=== PATIENT | female | born 1980 | race African-American/Black ===

== ENCOUNTER 2017-04-30 12:17 | Emergency (ER) | payer MEDICAID ==
[~2017-04-30] VITALS: Ht 170.2 cm; Wt 100.0 kg
[2017-04-30] MEDS ORDERED: PLEASE ENTER ALLERGIES MC SCH ×2 (13:00)
[2017-04-30] MEDS ORDERED: PLEASE ENTER HEIGHT AND WEIGHT MC SCH (13:00)
[2017-04-30] MEDS ORDERED: ALBUTEROL/IPRATROPIUM 2.5MG/0.5MG, 3 ML NPPB ONE (13:00)
[2017-04-30] MEDS ORDERED: ALBUTEROL/IPRATROPIUM 2.5MG/0.5MG, 3 ML ONE (13:27)
[2017-04-30] MEDS ORDERED: MECLIZINE CHEWABLE 25 MG TAB ONE (13:57)
[2017-04-30] MEDS ORDERED: MECLIZINE CHEWABLE 25 MG TAB PO ONE (14:00)
[2017-04-30 14:52] VITALS: BP 118/67
== END 2017-04-30 15:12 | disposition home or self-care (01) ==
LOC: ED 15:03
DX: H81.399 Other peripheral vertigo, unspecified ear (principal); J45.31 Mild persistent asthma with (acute) exacerbation; I10 Essential (primary) hypertension
CPT/HCPCS: 71020; 93005; 94640; 99284; J7512; J7620

== ENCOUNTER 2017-07-24 21:05 | Emergency (ER) | payer MEDICAID ==
[~2017-07-24] VITALS: Ht 160 cm; Wt 100.0 kg
[2017-07-24 21:06] VITALS: BP 107/77
[2017-07-24] MEDS ORDERED: ALBUTEROL SULFATE 2.5 MG/3 ML NPPB ONE (21:30)
[2017-07-24] MEDS ORDERED: ALBUTEROL SULFATE 2.5 MG/3 ML ONE (21:34)
== END 2017-07-24 23:26 | disposition home or self-care (01) ==
LOC: ED 22:13
DX: J45.31 Mild persistent asthma with (acute) exacerbation (principal)
CPT/HCPCS: 71020; 93005; 94640; 99284; J7512; J7613

== ENCOUNTER 2017-11-28 14:55 | Emergency (ER) | payer MEDICAID ==
[~2017-11-28] VITALS: Ht 160 cm; Wt 101.2 kg
[2017-11-28 15:13] VITALS: BP 117/73
== END 2017-11-28 16:02 | disposition home or self-care (01) ==
LOC: ED 15:45
DX: J30.2 Other seasonal allergic rhinitis (principal); I10 Essential (primary) hypertension
CPT/HCPCS: 99283